=== PATIENT | male | born 1945 | race Caucasian/White ===

== ENCOUNTER 2022-09-25 12:56 | Outpatient (CLI) | payer MEDICARE ==
[~2022-09-25 12:56] MED LIST: barium sulfate 450ml oral suspension ONE
== END 2022-09-25 23:59 | disposition home or self-care (01) ==
LOC: RAD 12:56
PROVIDERS: ATTEND Family Medicine
DX: R13.14 Dysphagia, pharyngoesophageal phase (principal)
CPT/HCPCS: 74230